=== PATIENT | female | born 2000 | race Caucasian/White ===

== ENCOUNTER 2021-10-29 11:33 | Emergency (ER) | payer MEDICAID, OTHER ==
[~2021-10-29] VITALS: Ht 167.6 cm; Wt 70.0 kg
[2021-10-29] MEDS ORDERED: SODIUM CHLORIDE 0.9% 1,000 ML IV ONE (12:00)
[2021-10-29 12:39] LABS: BASOPHILS % 0.3 % (0.0-2.0); EOSINOPHILS % 0.2 % (0.0-5.0); HEMATOCRIT. 46.5 % (36.0-48.0); HEMOGLOBIN. 15.1 g/dL (12.0-16.0); LYMPHOCYTES % 12.9 % (20.0-50.0); MEAN CORPUSCULAR HEMOGLOBIN 28.8 pg (28.0-32.0); MEAN CORPUSCULAR VOLUME 88.7 fL (81.0-99.0); MEAN PLATELET VOLUME 9.8 fl (7.4-10.4); MONOCYTES % 4.7 % (2.0-8.0); NEUTROPHILS % 81.9 % (40.0-76.0); PLATELET 292 x1000/uL (130-400); RED BLOOD CELL COUNT 5.24 mill/uL (4.2-5.4); RED CELL DISTRIBUTION WIDTH 13.3 % (11.6-14.6)
[2021-10-29 12:47] LABS: CHLORIDE 102 mEq/L (98-107)
[2021-10-29 12:57] LABS: ETHANOL BLOOD < 10 mg/dL
[2021-10-29 13:10] LABS: HCG SCREEN NEGATIVE
[2021-10-29 13:54] VITALS: BP 111/70
== END 2021-10-29 13:56 | disposition home or self-care (01) ==
LOC: ER 11:46
DX: R55 Syncope and collapse (principal); R53.1 Weakness; R06.02 Shortness of breath
CPT/HCPCS: 36415; 71045; 80053; 80320; 84484; 84703; 85025; 93005; 99285; J7030; G0480